=== PATIENT | male | born 1975 | race Caucasian/White ===

== ENCOUNTER 2020-01-24 15:28 | Emergency (ER) | payer OTHER ==
[~2020-01-24] VITALS: Ht 165.1 cm; Wt 77.1 kg
[2020-01-24 15:44] VITALS: BP 110/73
[2020-01-24] MEDS ORDERED: ALUMINUM HYD/MAG/SIMETHICONE 30 ML, DICYCLOMINE HCL LIQUID 20 MG, LIDOCAINE VISCOUS 2% ... PO ONE ×3 (16:35)
[2020-01-24] MEDS ORDERED: ONDANSETRON 4 MG ODT PO ONE (16:35)
[2020-01-24] MEDS ORDERED: ACETAMINOPHEN EXTRA STRENGTH 500 MG TAB PO ONE (16:35)
[2020-01-24] MEDS ORDERED: ALUMINUM HYD/MAG/SIMETHICONE 30 ML UDC ONE (16:40)
[2020-01-24] MEDS ORDERED: DICYCLOMINE HCL LIQUID 10 MG/5 ML UDC ONE (16:40)
[2020-01-24] MEDS ORDERED: LIDOCAINE VISCOUS 2% 20 ML UDC ONE (16:40)
--- NOTE | 2020-01-24 16:45 | NUR ---
PT PROVIDED URINE SAMPLE, GIVEN TO [employer]
--- NOTE | 2020-01-24 16:55 | NUR ---
44 Y/O MALE PRESENTS WITH LOWER ABD PAIN THAT HAS BEEN PRESENT FOR "A FEW MONTHS" BUT HAS GOTTEN WORSE TODAY. DENIES ANY EMESIS OR DIARRHEA. PT FEELS LIKE PAIN IS RELATED TO GAS, BUT KEEPS COMING BACK AND IS NONRELIEVED. STATES LAST BM WAS TODAY AND WAS NORMAL. BOWEL SOUNDS NORMOACTIVE IN ALL QUADRANTS, ABD NON TENDER/NON DISTENDED. RESP EVEN AND UNLABORED. DENIES ANY CP/SOB. CAP REFILL <3. VSS. NO PMH NKA
[2020-01-24 16:56] LABS: BASOPHILS % (AUTO) 0.3 % (0.0-2.0); EOSINOPHILS # (AUTO) 0.1 K/uL (0-0.4); EOSINOPHILS % (AUTO) 0.8 % (0.0-4.0); HEMATOCRIT 43.8 % (36-52); HEMOGLOBIN 14.4 g/dL (12.0-18.0); LYMPHOCYTES # (AUTO) 1.6 K/uL (2.0-11.5); MEAN CORPUSCULAR HEMOGLOBIN 29 pg (27-31); MEAN CORPUSCULAR HGB CONC 33 g/dL (33-37); MEAN CORPUSCULAR VOLUME 87.6 fL (80-94); MONOCYTES # (AUTO) 0.4 K/uL (0.8-1.0); MONOCYTES % (AUTO) 4.8 % (1.7-9.3); NEUTROPHILS # (AUTO) 7.2 K/uL (1.8-7.7); NEUTROPHILS % (AUTO) 77.1 % (42.2-75.2); PLATELET COUNT (AUTO) 228 K/uL (140-450); RED CELL DISTRIBUTION WIDTH 13.8 % (11.6-13.7); WHITE BLOOD COUNT (AUTO) 9.3 K/uL (4.8-10.8)
[2020-01-24 17:06] LABS: APPEARANCE,URINE CLEAR (CLEAR); BILIRUBIN,URINE NEGATIVE (NEGATIVE); BLOOD, URINE 1+ (NEGATIVE); COLOR,URINE YELLOW (YELLOW); LEUKOCYTE ESTERASE ,URINE NEGATIVE (NEGATIVE); NITRITE, URINE NEGATIVE (NEGATIVE); UGLUCOSE NEGATIVE (NEGATIVE)
[2020-01-24 17:12] LABS: ALBUMIN 4.3 g/dL (3.4-5.0); ANION GAP 12.7 (8-16); CARBON DIOXIDE 27.3 mmol/L (21-32); CREATININE 1.1 mg/dL (0.6-1.3); TOTAL BILIRUBIN 0.7 mg/dL (0.0-1.0)
[2020-01-24 17:18] LABS: RBC,URINE 0-5 /HPF (0-5)
[2020-01-24 17:19] LABS: WBC,URINE 0-5 /HPF (0-5)
--- NOTE | 2020-01-24 18:00 | NUR ---
PT IS RESTING IN BED, AWAKE AND ALERT. VSS. ALL NEEDS MET AT THIS TIME
[2020-01-24 18:39] VITALS: BP 115/81
--- NOTE | 2020-01-24 18:39 | NUR ---
Patient discharged with v/s stable. Written and verbal after care instructions given and explained. Patient alert, oriented and verbalized understanding of instructions. Ambulatory with steady gait. All questions addressed prior to discharge. ID band removed. Patient advised to follow up with PMD. Rx of ZOFRAN, PEPCID, BENTYL given. Patient educated on indication of medication including possible reaction and side effects. Opportunity to ask questions provided and answered.
== END 2020-01-24 18:39 | disposition home or self-care (01) ==
LOC: MED 15:28
DX: K29.70 Gastritis, unspecified, without bleeding (principal)
CPT/HCPCS: 36415; 80053; 81001; 82150; 83690; 85025; 99284; Q0162